=== PATIENT | female | born 1955 | race Caucasian/White ===

== ENCOUNTER 2020-08-20 12:16 | Emergency (ER) | payer OTHER ==
--- NOTE | 2020-08-20 14:04 | ER ---
Nurse's Notes [facility] Name: Della Fajardo Age: 65 yrs Sex: Female : 1955 Arrival Date: 08/20/2020 Time: 12:18 Bed 17 [facility] MD: Diagnosis: Acute allergic reaction - COVID vaccine Presentation: 08/20 12:27 Chief complaint: EMS states: "the pt had the first dose of her COVID vaccine today and jd3 was having a rash on her face and chest. she was medicated with 50 mg Benadryl IM at 1130 and we gave 125 mg Solu-Medrol IV at 1200 from us. she is reporting she is starting to feel better.". Coronavirus screen: At this time, the client does not indicate any symptoms associated with coronavirus-19. Ebola Screen: Patient negative for fever greater than or equal to 101.5 degrees Fahrenheit, and additional compatible Ebola Virus Disease symptoms. Initial Sepsis Screen: Does the patient meet any 2 criteria? No. Patient's initial sepsis screen is negative. Does the patient have a suspected source of infection? No. Patient's initial sepsis screen is negative. Risk Assessment: Do you want to hurt yourself or someone else? Patient reports no desire to harm self or others. Onset of symptoms was August 20, 2020. 12:27 Method Of Arrival: EMS: [facility] jd3 12:27 Acuity: GEORGETTE 4 jd3 Historical: - Allergies: 12:30 Celebrex; jd3 12:30 Lisinopril; jd3 - PMHx: 12:30 Hypertension; Hypothyroidism; jd3 - Immunization history:: Adult Immunizations unknown. - Social history:: Smoking status: unknown. - Family history:: not pertinent. - Hospitalizations: : No recent hospitalization is reported. Screenin:32 Abuse screen: Denies threats or abuse. Nutritional screening: No deficits noted. jd3 Tuberculosis screening: No symptoms or risk factors identified. Fall Risk Ambulatory Aid- None/Bed Rest/Nurse Assist (0 pts). Gait- Normal/Bed Rest/Wheelchair (0 pts) Mental Status- Oriented to own ability (0 pts). Total Crowley Fall Scale indicates No Risk (0-24 pts). Assessment: 12:31 General: Appears in no apparent distress. uncomfortable, Behavior is calm, cooperative, jd3 appropriate for age, anxious. Pain: Denies pain. Neuro: Level of Consciousness is awake, alert, obeys commands, Oriented to person, place, time, situation. Cardiovascular: Denies chest pain, Capillary refill < 3 seconds Patient's skin is warm and dry. Respiratory: Airway is patent Respiratory effort is even, unlabored, Respiratory pattern is regular, symmetrical, Denies cough, shortness of breath. GI: No signs and/or symptoms were reported involving the gastrointestinal system. : No signs and/or symptoms were reported regarding the genitourinary system. EENT: No signs and/or symptoms were reported regarding the EENT system. Derm: Skin is intact, Skin is dry, Skin is normal, Skin temperature is warm. Musculoskeletal: Circulation, motion, and sensation intact. Range of motion: intact in all extremities. 13:30 Reassessment: Patient appears in no apparent distress at this time. Patient and/or jd3 family updated on plan of care and expected duration. Pain level reassessed. Patient is alert, oriented x 3, equal unlabored respirations, skin warm/dry/pink. Patient denies pain at this time. Patient states feeling better. Patient states symptoms have improved. 14:25 Reassessment: Patient appears in no apparent distress at this time. Patient and/or jd3 family updated on plan of care and expected duration. Pain level reassessed. Patient is alert, oriented x 3, equal unlabored respirations, skin warm/dry/pink. awaiting ride for discharge Patient denies pain at this time. Patient states feeling better. Patient states symptoms have improved. Vital Signs: 12:30 BP 172 / 99; Pulse 87; Resp 16 S; Temp 97.9(O); Pulse Ox 99% on R/A; Weight 74.84 kg jd3 (R); Height 5 ft. 6 in. (167.64 cm) (R); Pain 0/10; 13:30 BP 158 / 89; Pulse 72; Resp 16 S; Pulse Ox 97% on R/A; jd3 12:30 Body Mass Index 26.63 (74.84 kg, 167.64 cm) jd3 ED Course: 12:18 Patient arrived in ED. rn 12:18 Collin Pena MD is Attending Physician. rn 12:22 Westbrook, Tom, RN is Primary Nurse. jd3 12:29 Triage completed. jd3 12:31 Arm band placed on. jd3 12:32 Patient has correct armband on for positive identification. Bed in low position. Call jd3 light in reach. Side rails up X 1. Adult w/ patient. Pulse ox on. NIBP on. 12:33 Maintain EMS IV. Dressing intact. Good blood return noted. Site clean \\T\\ dry. Gauge \\T\\ bella 3 site: 18 gauge to the right forearm. 14:26 No provider procedures requiring assistance completed. IV discontinued, intact, jd3 bleeding controlled, No redness/swelling at site. Pressure dressing applied. Administered Medications: No medications were administered Outcome: 14:03 Discharge ordered by . rn 14:26 Condition: stable jd3 14:26 Discharge instructions given to patient, Instructed on discharge instructions, follow up and referral plans. medication usage, Demonstrated understanding of instructions, follow-up care, medications, Prescriptions given X 1. 15:05 Discharged to home ambulatory, with friend. jd3 15:05 Patient left the ED. jd3 Signatures: Collin Pena MD MD rn Davies, Jonathon, RN RN [email or web address] Corrections: (The following items were deleted from the chart) 13:31 13:30 Reassessment: Patient appears in no apparent distress at this time. Patient jd3 and/or family updated on plan of care and expected duration. Pain level reassessed. Patient is alert, oriented x 3, equal unlabored respirations, skin warm/dry/pink. jd3 14:26 14:25 Reassessment: Patient appears in no apparent distress at this time. Patient jd3 and/or family updated on plan of care and expected duration. Pain level reassessed. Patient is alert, oriented x 3, equal unlabored respirations, skin warm/dry/pink. Patient denies pain at this time. Patient states feeling better. Patient states symptoms have improved. jd3
--- NOTE | 2020-08-20 14:04 | EDPHYS ---
Physician Documentation [facility] Name: Della Fajardo Age: 65 yrs Sex: Female : 1955 Arrival Date: 08/20/2020 Time: 12:18 Bed 17 Private MD: ED Physician Collin Pena HPI: 08/20 13:27 This 65 yrs old Female presents to ER via EMS with complaints of allergic rn reaction. 13:27 The patient presents with redness of skin, shortness of breath. Onset: The rn symptoms/episode began/occurred 2 hour(s) ago. Associated signs and symptoms: Pertinent positives: flushing, mild sob. Severity of symptoms: At their worst the symptoms were mild in the emergency department the symptoms have improved. The patient has not experienced similar symptoms in the past. Reports had first COVID moderna shot this AM, felt OK, was eating with friends, had facial flushing and felt tightness or mild sob. No focal swelling. Given benadryl IM, and then EMS gave solumedrol, now feels much better. Denies sob/chest tightness/nausea/rash/itching.. Historical: - Allergies: 12:30 Celebrex; jd3 12:30 Lisinopril; jd3 - PMHx: 12:30 Hypertension; Hypothyroidism; jd3 - Immunization history:: Adult Immunizations unknown. - Social history:: Smoking status: unknown. - Family history:: not pertinent. - Hospitalizations: : No recent hospitalization is reported. ROS: 13:27 Constitutional: Negative for fever, chills, and weight loss, Eyes: Negative for injury, rn pain, redness, and discharge, ENT: No oral swelling Cardiovascular: Negative for chest pain, palpitations, and edema, Respiratory: Negative for cough, wheezing, and pleuritic chest pain, Abdomen/GI: Negative for abdominal pain, nausea, vomiting, diarrhea, and constipation, MS/Extremity: Negative for injury and deformity, Skin: Negative for injury, rash, and discoloration, Neuro: Negative for headache, weakness, numbness, tingling, and seizure. Exam: 13:27 Constitutional: This is a well developed, well nourished patient who is awake, alert, rn and in no acute distress. Head/Face: Normocephalic, atraumatic. Eyes: Pupils equal round and reactive to light, extra-ocular motions intact. Lids and lashes normal. Conjunctiva and sclera are non-icteric and not injected. Cornea within normal limits. Periorbital areas with no swelling, redness, or edema. ENT: No oral swelling, no stridor Cardiovascular: Regular rate and rhythm. No pulse deficits. Respiratory: No increased work of breathing, no retractions or nasal flaring. Abdomen/GI: Soft, non-tender MS/ Extremity: Pulses equal, no cyanosis. Neuro: Awake and alert, GCS 15 Vital Signs: 12:30 BP 172 / 99; Pulse 87; Resp 16 S; Temp 97.9(O); Pulse Ox 99% on R/A; Weight 74.84 kg jd3 (R); Height 5 ft. 6 in. (167.64 cm) (R); Pain 0/10; 13:30 BP 158 / 89; Pulse 72; Resp 16 S; Pulse Ox 97% on R/A; jd3 12:30 Body Mass Index 26.63 (74.84 kg, 167.64 cm) jd3 MDM: 12:18 Patient medically screened. rn 14:02 Differential diagnosis: allergic reaction. Data reviewed: vital signs, nurses notes, rn and as a result, I will discharge patient. Counseling: I had a detailed discussion with the patient and/or guardian regarding: the historical points, exam findings, and any diagnostic results supporting the discharge/admit diagnosis, the need for outpatient follow up, to return to the emergency department if symptoms worsen or persist or if there are any questions or concerns that arise at home. Response to treatment: the patient's symptoms have markedly improved after treatment, the patient's condition has returned to base line, the patient is now symptom free, and as a result, I will discharge patient. Special discussion: I discussed with the patient/guardian in detail that at this point there is no indication for admission to the hospital. It is understood, however, that if the symptoms persist or worsen the patient needs to return immediately for re-evaluation. 08/20 12:19 Order name: Cardiac monitoring; Complete Time: 12:33 rn Administered Medications: No medications were administered Disposition: 08/20/20 14:03 Discharged to Home. Impression: Acute allergic reaction - COVID vaccine. - Condition is Stable. - Prescriptions for Prednisone 20 mg Oral Tablet - take 3 tablet by ORAL route once daily for 5 days; 15 tablet. - Medication Reconciliation Form, Thank You Letter, Antibiotic Education, Prescription Opioid Use form. - Follow up: Private Physician; When: As needed; Reason: Recheck today's complaints, Re-evaluation by your physician. - Problem is new. - Symptoms have improved. Signatures: Collin Pena MD MD rn Davies, Jonathon, RN RN jd3 Corrections: (The following items were deleted from the chart) 15:05 14:03 08/20/2020 14:03 Discharged to Home. Impression: Acute allergic reaction - COVID jd3 vaccine. Condition is Stable. Forms are Medication Reconciliation Form, Thank You Letter, Antibiotic Education, Prescription Opioid Use. Follow up: Private Physician; When: As needed; Reason: Recheck today's complaints, Re-evaluation by your physician. Problem is new. Symptoms have improved. rn
[2020-08-20 15:11] VITALS: TEMP 97.9
[2020-08-20 15:12] VITALS: BP 158/89; O2SAT 97
== END 2020-08-20 15:05 | disposition home or self-care (01) ==
LOC: ER 12:16
DX: R23.2 Flushing (principal); I10 Essential (primary) hypertension; Z88.8 Allergy status to other drugs, medicaments and biological substances
CPT/HCPCS: 99283